=== PATIENT | male | born 1960 | race Caucasian/White ===

== ENCOUNTER → 2024-10-06 10:45 | Outpatient (REF) | payer BC, SELFPAY | LOC: DHSLP 10:45 | PROVIDERS: ATTENDING PHYSICIAN Internal Medicine; FAMILY PHYSICIAN Family Medicine | DX: G47.33 Obstructive sleep apnea (adult) (pediatric) (principal) | CPT/HCPCS: 95800 ==

== ENCOUNTER → 2025-02-10 15:06 | Outpatient (REF) | payer BC, SELFPAY | LOC: RAD 15:06 | PROVIDERS: ATTENDING PHYSICIAN Family Medicine | DX: M25.511 Pain in right shoulder (principal); M25.512 Pain in left shoulder | CPT/HCPCS: 73030 ==

== ENCOUNTER 2025-10-14 10:00 | Outpatient (RCR) | payer BC, SELFPAY | END 2025-10-14 23:59 | disposition home or self-care (01) | LOC: CRHB 10:00 | PROVIDERS: ATTENDING PHYSICIAN Internal Medicine Cardiovascular Disease | DX: I25.10 Atherosclerotic heart disease of native coronary artery without angina pectoris (principal); Z95.1 Presence of aortocoronary bypass graft | CPT/HCPCS: 93797; 93798 ==

== ENCOUNTER 2025-10-25 19:31 | Emergency (ER) | payer BC, SELFPAY ==
[2025-10-25 19:33] VITALS: BP 138/83
[2025-10-25 20:06] VITALS: BMI 26.1
[2025-10-25 20:07] VITALS: BP 131/73
[2025-10-25 20:47] LABS: INR 1.33; PT 16.6 Sec (11.4-14.6)
[2025-10-25 20:55] LABS: Hematocrit 35.8 % (39.0-52.0); Hemoglobin 11.8 g/dL (13.0-18.0); Mean Corp Hgb Conc. 33.0 g/dL (33.0-37.0); Mean Corpuscular Volume 89.9 fL (80.0-94.0); Red Cell Dist. Width 13.7 % (11.5-14.5)
[2025-10-25 21:00] VITALS: BP 140/72
[2025-10-25 21:02] LABS: ALT (SGPT) 24 U/L (0-50); AST (SGOT) 29 U/L (17-59); Albumin 3.5 g/dl (3.5-5.0); Alkaline Phosphatase 63 U/L (38-126); Blood Urea Nitrogen 19 mg/dl (9-20); Calcium 8.6 mg/dl (8.4-10.2); Carbon Dioxide 26 mmol/L (22-30); Chloride 106 mmol/L (98-107); Estimated Creatinine Clearance 99 ml/min; Glucose 102 mg/dl (70-99); Potassium 4.0 mmol/L (3.5-5.1); Sodium 135 mmol/L (135-145); Total Protein 5.8 g/dl (6.3-8.2); eGFR > 60.00
[2025-10-25 21:06] LABS: Absolute Neutrophils -Man Diff 2.1 10^3/uL (1.4-6.5); Platelet Count 190 10^3/uL (130-400)
[2025-10-25 21:07] LABS: Anisocytosis 1+; Normal RBC Morphology No; Ovalocytes 1+; Platelets Checked Yes
[2025-10-25 21:08] LABS: Microcytosis 1+; Total Cells Counted 100
--- NOTE | 2025-10-25 21:28 | ED.GENMED ---
History of Present Illness
General
Chief Complaint: Circulation Problem
Time Seen by Provider: 10/25/25 19:49
History of Present Illness
History of Present Illness:
65-year-old male with history of CAD status post CABG x 2 on September 06 at [facility] presents to the emergency department for evaluation of 'mottling' of the left 2nd and 3rd toes as well as right second toe that developed over the past day.
He has been recovering well from his surgery, denies any chest pain or difficulty breathing. Performing cardiac rehab without issues. Denies any current fevers, night sweats, weight loss, chest pain, or shortness of breath. Saw his CT surgery
team yesterday and is scheduled for outpatient aortic CT angiogram as well as bilateral lower extremity ultrasounds but due to the worsening discoloration of the right toes came to the hospital today. Feels well overall. Takes Plavix but no
anticoagulants
Past History
Past History
ED Past Medical History: HTN and Other (Hemorrhoids, prostate cancer)
ED Past Surgical History: Appendectomy and Other (Hemorrhoidal banding which led to complications and had an incision about the banding, and prostate surgery)
Social History
Tobacco: Non-smoker
Personal:
Living: with family
Employment: Employed
Review of Systems
Review of Systems
Allergies reviewed?: Yes
All Other Systems: ROS reviewed and negative except as documented in HPI and ROS
Phy Exam
Physical Exam
Physical Exam:
GEN: Well appearing, NAD, WDWN
HEENT: Oral mucosa moist, no scleral icterus
Cardiac: Regular rate and rhythm, no murmur
Lung: No respiratory distress, no tachypnea, lungs clear to auscultation bilaterally
MSK: No gross deformity or injuries. Strong dorsalis pedis pulses and posterior tibialis pulses bilaterally
Skin: Good color, no pallor or jaundice, no rashes. Normal cap refill bilat feet. No dependent rubor
Neuro: AO x3, moves all extremities freely
Psych: Calm, cooperative
Course
Orders/Labs/Results
Orders:
Orders
10/25/25 20:01
Electrocardiogram (*1) Urgent
Reason for Study: QTc Monitoring
EKG- Treatment ONCE
10/25/25 20:21
Blood Culture Q30M
KATY Source: Blood/Venous
Specimen Description:
10/25/25 20:22
Complete Blood Count/With Diff Urgent
Comprehensive Metabolic Panel Urgent
Manual Differential Urgent
Prothrombin Time Urgent
Blood Culture Q30M
KATY Source: Blood/Venous
Specimen Description:
10/25/25 21:25
COVID-19 Antigen Urgent
Source: Nasal Swab
Abnormal Lab Results
10/25/25
20:22
WBC 4.3 L 10^3/uL
(4.8-10.8)
RBC 3.98 L 10^6/uL
(4.70-6.10)
Hgb 11.8 L g/dL
(13.0-18.0)
Hct 35.8 L %
(39.0-52.0)
MPV 11.4 H fL
(7.4-10.4)
Monocytes (Manual) 19 H %
(2-9)
Eosinophils (Manual) 7 H %
(0-6)
PT 16.6 H Sec
(11.4-14.6)
Glucose 102 H mg/dl
(70-99)
Total Protein 5.8 L g/dl
(6.3-8.2)
10/25/25 20:22
10/25/25 20:22
Vital Signs
Initial and Last Documented VS:
Initial Vital Signs
Temp Pulse Resp BP Pulse Ox
98.0 F 77 20 138/83 99
10/25/25 19:33 10/25/25 19:33 10/25/25 19:33 10/25/25 19:33 10/25/25 19:33
Last Documented Vital Signs
Temp Pulse Resp BP Pulse Ox
98.0 F 65 20 140/72 99
10/25/25 19:33 10/25/25 21:45 10/25/25 21:45 10/25/25 21:00 10/25/25 21:45
MDM/Problems Addressed
MDM/Problems Addressed:
Patient is a well-appearing, no murmur auscultated. Strong distal pulses and no clinical signs of macrovascular ischemia at this time. He has no fever, leukocytosis, or constitutional symptoms concerning for postoperative endocarditis. I
discussed the case with cardiothoracic surgery on-call through [facility], Dr Yoon, who agrees that clinical presentation is not convincing for cardiac etiology and agrees that continued outpatient workup is reasonable. Patient will
continue with plans for outpatient imaging tomorrow, blood cultures pending
*Pulse Oximetry
SaO2: 99
Oxygen Mode of Delivery: Room air
Patient hypoxic: no
*Critical Care Note
Total Time (30-74mins, 75-104mins- exclusive of procedures): Not Applicable
ED Attending Note
-
Portions of this chart may have been created with voice recognition software.� Occasional wrong word or��sound alike� substitutions may have occurred due to the inherent limitations of voice recognition software.
Discharge Plan
Departure
Patient Disposition: Home (Routine Discharge)
Date of Disposition: 10/25/25
Time of Disposition: 21:44
Patient with high blood pressure during this ER visit?: No
Discharge Problem:
Petechial rash
Prescriptions:
No Action
chlorthalidone 25 MG tablet
12.5 mg PO DAILY
acetaminophen [Tylenol Extra Strength] 500 MG tablet
1,000 mg PO Q6 PRN (Reason: pain)
ibuprofen 200 MG tablet
400 mg PO Q6 PRN (Reason: pain)
cyanocobalamin (vitamin B-12) 1,000 MCG tablet
1 tab PO DAILY
haseeb Zarate B.animalis 1 EACH capsule
1 cap PO DAILY
losartan 50 MG tablet
50 mg PO DAILY
rosuvastatin [Crestor] 5 MG tablet
5 mg PO DAILY
acetaminophen 325 MG tablet
650 mg PO Q4HPRN PRN (Reason: mild pain) Qty: 1 0RF
ibuprofen 200 MG tablet
400 - 600 mg PO Q6HPRN PRN (Reason: moderate pain) Qty: 1 0RF
oxycodone 5 MG tablet
5 mg PO Q4HPRN PRN (Reason: breakthrough/severe pain) Qty: 10 0RF
Referrals:
Don Lee Jr., DO [Family Provider, Internal Medicine]
Activity Restrictions/Additional Instructions:
Your labs were all normal and your exam is reassuring, you have no signs of large blood vessel flow problems as you have strong pulses and good color of your legs. You have no heart murmur or fever that would be concerning for a heart valve
infection. Please follow-up with your cardiac surgery office tomorrow to continue further workup.
We did do blood culture testing and if this returns positive you will be contacted to come to the hospital immediately
Continue with plans for your outpatient studies as ordered by your CT surgery team tomorrow
Interventions
Interventions:
*Risk Screen - Suicide Last Done: 10/25/25 19:33
*General Assessment Last Done: 10/25/25 19:33
*Neglect/Abuse Screening Last Done: 10/25/25 19:33
*ED COVID-19 Vaccine History Last Done: 10/25/25 19:33
*ED Influenza Vaccine History Last Done: 10/25/25 19:33
[facility] Fall Risk Assessment Tool Last Done: 10/25/25 20:06
*Nursing Disposition Last Done: 10/25/25 21:59
ED-Peripheral Vascular Assessment Last Done: 10/25/25 20:06
Discharge Date and Time
Discharge Date/Time: 10/25/25 21:59
Print Language: MALIAN
[2025-10-25 21:47] LABS: COVID-19 Antigen Negative (Negative)
== END 2025-10-25 21:59 | disposition home or self-care (01) ==
LOC: EMR 19:31
PROVIDERS: Physician Assistant; EMERGENCY PHYSICIAN Student in an Organized Health Care Education/Training Program; FAMILY PHYSICIAN Family Medicine
DX: R23.3 Spontaneous ecchymoses (principal); I10 Essential (primary) hypertension; I25.10 Atherosclerotic heart disease of native coronary artery without angina pectoris; Z95.1 Presence of aortocoronary bypass graft; Z79.02 Long term (current) use of antithrombotics/antiplatelets; Z90.49 Acquired absence of other specified parts of digestive tract
CPT/HCPCS: 99284; 80053; 85025; 85610; 87040; 87811; 93005

== ENCOUNTER → 2025-10-28 12:08 | Outpatient (REF) | payer BC, SELFPAY | LOC: PAVMRI 12:08 | DX: I63.89 Other cerebral infarction (principal) | CPT/HCPCS: 70551 ==

== ENCOUNTER → 2025-10-31 06:44 | Outpatient (REF) | payer BC, SELFPAY | LOC: PAVMRI 06:44 | PROVIDERS: ATTENDING PHYSICIAN Orthopaedic Surgery Hand Surgery | DX: M75.42 Impingement syndrome of left shoulder (principal); M75.122 Complete rotator cuff tear or rupture of left shoulder, not specified as traumatic | CPT/HCPCS: 73221 ==

== ENCOUNTER → 2025-11-15 13:56 | Outpatient (REF) | payer BC, SELFPAY | LOC: DHVS 13:56 | PROVIDERS: ATTENDING PHYSICIAN Internal Medicine; FAMILY PHYSICIAN Internal Medicine | DX: I73.9 Peripheral vascular disease, unspecified (principal); T69.1XXA Chilblains, initial encounter; E55.9 Vitamin D deficiency, unspecified; M10.9 Gout, unspecified; K75.9 Inflammatory liver disease, unspecified; M60.9 Myositis, unspecified; E07.9 Disorder of thyroid, unspecified; G62.9 Polyneuropathy, unspecified; D47.2 Monoclonal gammopathy; Z51.81 Encounter for therapeutic drug level monitoring; Z15.89 Genetic susceptibility to other disease; L04.9 Acute lymphadenitis, unspecified; D68.61 Antiphospholipid syndrome; K75.4 Autoimmune hepatitis; Z22.7 Latent tuberculosis; I77.82 Antineutrophilic cytoplasmic antibody [ANCA] vasculitis; D89.84 IgG4-related disease; D89.2 Hypergammaglobulinemia, unspecified | CPT/HCPCS: 36415; 82595; 93922; 93925 ==

== ENCOUNTER 2025-11-16 09:59 | Outpatient (RCR) | payer BC, SELFPAY | END 2025-11-16 23:59 | disposition home or self-care (01) | LOC: CRHB 09:59 | PROVIDERS: ATTENDING PHYSICIAN Internal Medicine Cardiovascular Disease | DX: I25.10 Atherosclerotic heart disease of native coronary artery without angina pectoris (principal); Z95.1 Presence of aortocoronary bypass graft | CPT/HCPCS: 93797; 93798; G0422; G0423 ==